=== PATIENT | male | born 1990 | race Two or more races ===

== ENCOUNTER 2019-02-17 10:54 | Emergency (ER) | payer OTHER ==
[~2019-02-17] VITALS: Ht 182.9 cm; Wt 76.7 kg
[2019-02-17 11:01] VITALS: BP 123/71
[2019-02-17] MEDS ORDERED: NKM (11:04)
--- NOTE | 2019-02-17 11:05 | NUR ---
ED Nurse Note: Patient walked into ED c/o pain around his tonsil since yesteray morning. patient is alert awake x4 ambulatory. breathing even and unlabored.
[2019-02-17] MEDS ORDERED: AMOXICILLIN500 MG ORAL (11:09)
--- NOTE | 2019-02-17 11:17 | NUR ---
ER DISCHARGE NOTE: Patient is cleared to be discharged per AVA CALDERÓN, pt is aox4, on room air, with stable vital signs. pt was given dc and prescription instructions, pt was able to verbalize understanding, pt id band removed without complications. pt is able to ambulate with steady gait. pt took all belongings.
[2019-02-17 11:20] VITALS: BP 123/71
--- NOTE | 2019-02-17 12:22 | Emergency Room Report ---
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 Denies any other rash Pain is worse with swallowing denies any posterior neck pain or photophobia Allergies: Coded Allergies: No Known Allergies (Unverified , 02/17/19) Patient History Past Medical History: see triage record Pertinent Family History: none Reviewed Nursing Documentation: PMH: Agreed; PSxH: Agreed Nursing Documentation-PMH Past Medical History: No Stated History Review of Systems All Other Systems: negative except mentioned in HPI Physical Exam Vital Signs Date Time Temp Pulse Resp B/P (MAP) Pulse Ox O2 Delivery O2 Flow Rate FiO2 02/17/19 11:01 98.4 90 15 123/71 97 Room Air Sp02 EP Interpretation: reviewed, normal General Appearance: well appearing, no apparent distress Head: normocephalic, atraumatic Eyes: bilateral eye PERRL, bilateral eye EOMI ENT: hearing grossly normal, TMs + canals normal, uvula midline, pharyngeal erythema Neck: full range of motion, supple, no meningismus, no bony tend Respiratory: lungs clear, normal breath sounds, no rhonchi, no respiratory distress, no retraction, no accessory muscle use Cardiovascular #1: normal peripheral pulses, regular rate, rhythm, no edema, no gallop, no JVD, no murmur Gastrointestinal: normal bowel sounds, non tender, soft, no mass, no organomegaly, non-distended, no guarding, no hernia, no pulsatile mass, no rebound Genitourinary: no CVA tenderness Musculoskeletal: normal inspection Neurologic: oriented x3, responsive, telephone sales representative III-XII nml as tested, motor strength/ tone normal, sensory intact Psychiatric: mood/affect normal Skin: normal color, no rash, warm/dry, palpation normal Lymphatic: normal inspection, no adenopathy Medical Decision Making Diagnostic Impression: Primary Impression: pharyngitis ER Course Patient also reporting that he has was sounds to be possibly previous splenic injury therefore requiring more conservative approach with antibiotics I do agree with the exam and findings patient does show symptoms of pharyngitis my consideration for retropharyngeal abscess or peritonsillar abscesses is low and patient stable for initial conservative outpatient trial Last Vital Signs Date Time Temp Pulse Resp B/P (MAP) Pulse Ox O2 Delivery O2 Flow Rate FiO2 02/17/19 11:20 98.4 90 15 123/71 97 Room Air Status: improved Disposition: HOME, SELF-CARE Condition: Improved Scripts Amoxicillin* (AMOXIL*) 500 Mg Capsule 500 MG ORAL THREE TIMES A DAY, #30 CAP Prov: Jorge Wang DO 02/17/19 Referrals: NOT CHOSEN IPA/MD,REFERRING (PCP) Patient Instructions: Pharyngitis, [id number] Additional Instructions: Patient is provided with the discharge instructions notified to follow up with primary doctor in the next 2-3 days otherwise return to the er with any worsening symptoms. Please note that this report is being documented using [employer] technology. This can lead to erroneous entry secondary to incorrect interpretation by the dictating instrument. Jorge Wang DO Feb 17, 2019 12:22
== END 2019-02-17 11:20 | disposition home or self-care (01) ==
LOC: EMR 11:15
DX: J02.9 Acute pharyngitis, unspecified (principal)
CPT/HCPCS: 99282